=== PATIENT | female | born 1960 ===

== ENCOUNTER 2018-04-29 17:27 | Emergency (ER) | payer BC ==
[~2018-04-29] VITALS: Ht 180.3 cm; Wt 68.0 kg
[~2018-04-29 17:27] MED LIST: CYCL10 PO; Cipro500 MG PO; Esgic Tablet1 EACH PO; IBUP600 PO; IBUP800 PO; LEVSOD175 PO; LEVSOD25 PO; Norco 5-325 Ta1 EACH PO; PROP10 PO; Zofran Odt4 MG SL
[2018-04-29] MEDS ORDERED: Norco 5-325 Ta1 EACH PO (18:44)
[2018-04-29] MEDS ORDERED: ONDA4ODT MM (18:45)
== END 2018-04-29 19:01 | disposition home or self-care (01) ==
LOC: ER 17:27
DX: S82.832A Other fracture of upper and lower end of left fibula, initial encounter for closed fracture (principal); F17.210 Nicotine dependence, cigarettes, uncomplicated; Z88.5 Allergy status to narcotic agent; Z79.899 Other long term (current) drug therapy; W18.30XA Fall on same level, unspecified, initial encounter
CPT/HCPCS: 29505; 73564; 99283-25

== ENCOUNTER → 2020-08-06 | Outpatient (CLI) | payer BC ==
[~2020-08-06] MED LIST changes: +ONDA4ODT MM
[2020-08-06 15:08] LABS: Source, Urine Clean Catch
[2020-08-06 17:16] LABS: Appearance, Urine Turbid (Clear); Bilirubin, Urine Neg (Neg); Blood, Urine 1+ (Neg); Color, Urine Yellow (P-Yellow); Glucose Qualitative, Urine Neg (Neg); Ketones, Urine 1+ (Neg); Leukocyte Esterase, Urine 2+ (Neg); Nitrite, Urine Pos (Neg); Protein, Urine 1+ (Neg); Specific Gravity, Urine 1.025 (1.003-1.022); Urobilinogen, Urine NORM (Normal)
[2020-08-06 17:40] LABS: Red Blood Cells, Urine 0-2 /hpf (0-2)
[2020-08-06 17:41] LABS: Amorphous Heavy (0-Heavy); Bacteria Many /hpf; Squamous Epithelial Cells Rare /hpf (Few)
== END | disposition home or self-care (01) ==
LOC: LAB SHORT 15:02
PROVIDERS: Student in an Organized Health Care Education/Training Program
DX: R39.15 Urgency of urination (principal)
CPT/HCPCS: 81001

== ENCOUNTER 2020-11-10 21:02 | Emergency (ER) | payer BC ==
[~2020-11-10] VITALS: Ht 180.3 cm; Wt 72.6 kg
[2020-11-11] MEDS ORDERED: NP THYROID PO (01:21)
== END 2020-11-11 01:26 | disposition home or self-care (01) ==
LOC: ER 21:02
DX: S86.811A Strain of other muscle(s) and tendon(s) at lower leg level, right leg, initial encounter (principal); F17.210 Nicotine dependence, cigarettes, uncomplicated; Z91.040 Latex allergy status; Z88.8 Allergy status to other drugs, medicaments and biological substances; Z88.0 Allergy status to penicillin; Z88.5 Allergy status to narcotic agent; X50.1XXA Overexertion from prolonged static or awkward postures, initial encounter; W17.1XXA Fall into storm drain or manhole, initial encounter; Y92.89 Other specified places as the place of occurrence of the external cause
CPT/HCPCS: 73562-RT; 96372; 99283-25; J1885